=== PATIENT | female | born 1980 | race Two or more races ===

== ENCOUNTER → 2017-08-31 | Outpatient (CLI) | payer OTHER ==
[~2017-08-31] MED LIST: CALICUM 500+D1 EACH PO; Motrin PO; PRENATAL1 EACH PO; PROCARDIA10 MG PO
== END | disposition home or self-care (01) ==
LOC: RAD 17:22
DX: R60.0 Localized edema (principal); M79.672 Pain in left foot; M25.562 Pain in left knee; M79.2 Neuralgia and neuritis, unspecified; M62.81 Muscle weakness (generalized)
CPT/HCPCS: 93971